=== PATIENT | female | born 1960 | race Caucasian/White ===

== ENCOUNTER 2023-06-19 17:11 | Emergency (ER) | payer OTHER ==
[2023-06-19 17:54] LABS: BASOPHILS # (AUTO) 0.1 10^3/uL (0.0-0.1); BASOPHILS % (AUTO) 0.7 %; EOSINOPHILS # (AUTO) 0.1 10^3/uL (0.0-0.7); EOSINOPHILS % (AUTO) 1.4 %; HCT - HEMATOCRIT 38.9 % (37.0-47.0); HGB - HEMOGLOBIN 12.8 g/dL (12.0-16.0); LYMPHOCYTES # (AUTO) 2.3 10^3/uL (1.5-3.5); LYMPHOCYTES % (AUTO) 32.3 %; MEAN CORPUSCULAR HEMOGLOBIN 32.4 pg (27.0-31.0); MEAN CORPUSCULAR HGB CONC 32.9 g/dL (32.0-36.0); MEAN CORPUSCULAR VOLUME 98.5 fL (81.0-99.0); MEAN PLATELET VOLUME 10.1 fL (7.9-10.8); MONOCYTES # (AUTO) 0.5 10^3/uL (0.0-1.0); MONOCYTES % (AUTO) 7.2 %; NEUTROPHILS # (AUTO) 4.1 10^3/uL (1.5-6.6); NEUTROPHILS % (AUTO) 58.3 %; PLT - PLATELET COUNT 281 10^3/uL (130-450); RED BLOOD COUNT 3.95 10^6/uL (4.20-5.40); RED CELL DISTRIBUTION WIDTH 12.8 % (12.0-15.0)
[2023-06-19 18:07] LABS: ALBUMIN 4.7 g/dL (3.2-5.5); BILIRUBIN,TOTAL 0.6 mg/dL (0.2-1.0); CALCIUM 9.4 mg/dL (8.5-10.3); CREATININE 0.8 mg/dL (0.6-1.3); POTASSIUM 3.8 mmol/L (3.5-4.5)
[2023-06-19] MEDS ORDERED: HYDROmorphone 1 MG/ML CARPUJECT IVP STA ×2 (18:25→19:18)
--- NOTE | 2023-06-19 18:26 | ED Physician Documentation ---
PD HPI ABD PAIN - Stated complaint Stated Complaint: LLQ PX - Chief complaint Chief Complaint: Abd Pain - History obtained from History obtained from: Patient, Family - Additional information Additional information: Very healthy 62-year-old woman who developed gradual onset but severe left lower quadrant pain this afternoon. It is not associated with fevers, chills, nausea or vomiting. She has never had this before. Never had a colonoscopy but negative Cologuard within the year. PD PAST MEDICAL HISTORY - Present Medications Home Medications: Ambulatory Orders Medication Instructions Recorded Confirmed No Known Home Medications 06/19/23 06/19/23 - Allergies Allergies/Adverse Reactions: Allergies Allergy/AdvReac Type Severity Reaction Status Date / Time No Known Drug Allergies Allergy Verified 06/19/23 17:15 PD ED PE NORMAL - Vitals Vital signs reviewed: Yes - General General: Alert and oriented X 3, No acute distress - Cardiac Cardiac: RRR, No murmur - Respiratory Respiratory: No respiratory distress, Clear bilaterally - Abdomen Abdomen: Normal bowel sounds, Soft, Other (Exquisitely tender in the left lower quadrant but without surgical signs) - Neuro Neuro: Alert and oriented X 3 Results - Vitals Vitals: Vital Signs - 24 hr 06/19/23 06/19/23 17:15 19:41 Temperature 36.5 C Heart Rate 74 66 Respiratory 16 18 Rate Blood Pressure 140/72 H 126/77 O2 Saturation 100 96 Oxygen O2 Source Room air - Labs Labs: Laboratory Tests 06/19/23 06/19/23 17:44 17:44 WBC 7.0 RBC 3.95 L Hgb 12.8 Hct 38.9 MCV 98.5 MCH 32.4 H MCHC 32.9 RDW 12.8 Plt Count 281 MPV 10.1 Neut # (Auto) 4.1 Lymph # (Auto) 2.3 [place] # (Auto) 0.5 Eos # (Auto) 0.1 Baso # (Auto) 0.1 Absolute Nucleated RBC 0.00 Nucleated RBC % 0.0 Sodium 136 Potassium 3.8 Chloride 101 Carbon Dioxide 26 Anion Gap 9.0 BUN 12 Creatinine 0.8 Estimated GFR (MDRD) 73 L Glucose 107 H Calcium 9.4 Total Bilirubin 0.6 AST 23 ALT 18 Alkaline Phosphatase 69 Total Protein 7.0 Albumin 4.7 Globulin 2.3 Albumin/Globulin Ratio 2.0 Lipase 45 - Rads (name of study) CT abdomen pelvis negative Relevant Findings:: Final report received, EMP independent interpretation of test PD Medical Decision Making - ED course ED course: 62-year-old woman with severe left lower quadrant pain relatively acute with tenderness. Differential diagnosis is broad and includes diverticulitis as well as any other intra-abdominal emergency. She was medicated and went to CT. On return from CT she was pain-free and nontender. CT, CBC, CMP normal. Advised to return if symptoms recur. Departure - Departure Disposition: 01 Home, Self Care Clinical Impression: Abdominal pain Qualifiers: Abdominal location: left lower quadrant Qualified Code(s): R10.32 - Left lower quadrant pain Condition: Good Record reviewed to determine appropriate education?: Yes Instructions: ED Abdominal Pain Female Non-Specific Abdominal Pain Comments: Return if symptoms recur. Discuss colonoscopy with your primary care physician. CT of the abdomen pelvis, CBC, CMP all normal. Forms: PCP List
[2023-06-19] MEDS ORDERED: KETOROLAC 15 MG/ML VIAL IVP STA (19:18)
[2023-06-19 19:47] VITALS: BP 126/77; O2SAT 96
--- NOTE | 2023-06-19 22:20 | CT Report ---
PROCEDURE: ABDOMEN/PELVIS W INDICATIONS: iv only llq pn CONTRAST: Opti 320 100ml TECHNIQUE: After the administration of intravenous contrast, 5 mm thick sections acquired from the diaphragms to the symphysis. 5 mm thick coronal and sagittal reformats were acquired. For radiation dose reducti on, the following was used: automated exposure control, adjustment of mA and/or kV according to rossi ent size. COMPARISON: None. FINDINGS: Image quality: Excellent. Lung bases:There is mild dependent atelectasis. Heart: Heart is normal in size. ABDOMEN: Liver:There is diffuse hypoattenuation of the liver consistent with fatty infiltration. Gallbladder: Within normal limits without calcified gallstones. Biliary ducts: No biliary ductal dilatation. Pancreas: Unremarkable. Spleen: Normal in size. Adrenal Glands: No adrenal nodules. Kidneys and Ureters: No hydronephrosis. Stomach and Bowel: Stomach, small bowel loops, and colon are normal in caliber and wall thickness. N o pericecal inflammatory changes to suggest appendicitis. Peritoneum: No abnormal intraperitoneal fluid. No free air. Ventral Wall: No hernia. Abdominal Nodes: No retroperitoneal or mesenteric adenopathy by size criteria. Vessels: Aorta and inferior vena cava are normal in size. PELVIS: Pelvic Organs: Unremarkable. Bladder: Unremarkable. Pelvic Nodes: No enlarged lymph nodes. Miscellaneous: No inguinal hernias. Bones: Visualized osseous structures demonstrate no suspicious lesions. IMPRESSION: 1. No acute intra-abdominal abnormality. Reviewed by: Bo Barrera MD on 06/19/2023 10:18 PM PDT Approved by: Bo Barrera MD on 06/19/2023 10:18 PM PDT Station ID: [id number]
[2023-06-20] MEDS ORDERED: IOVERSOL 320 100 ML VIAL IVP ONE (01:19)
== END 2023-06-19 22:51 | disposition home or self-care (01) ==
LOC: ED 17:11
DX: R10.32 Left lower quadrant pain (principal)
CPT/HCPCS: 36415; 74177; 80053; 83690; 85025; 96374; 96376; 99283; J1170